=== PATIENT | female | born 1965 | race Caucasian/White ===

== ENCOUNTER 2017-07-29 21:26 | Emergency (ER) | payer SELFPAY ==
[2017-07-29 21:26] VITALS: BMI 30.2
[2017-07-29] MEDS ORDERED: Sodium Chloride 0.9% 1,000 ML IV STA (22:05)
[2017-07-29 22:20] VITALS: O2SAT 98
[2017-07-29 22:21] LABS: BASO % 0.5 % (0.0-2.0); EOS # 0.2 K/uL (0.0-0.7); EOS % 3.6 % (0.0-4.0); HEMATOCRIT 35.8 % (34.0-47.0); LYMPH # 1.5 K/uL (1.0-4.3); LYMPH % 25.9 % (20.0-40.0); MEAN CELL VOLUME 86.9 fL (81.0-99.0); MEAN CORPUSCULAR HEMOGLOBIN 29.5 pg (27.0-31.0); MEAN CORPUSCULAR HGB CONC 33.9 g/dL (33.0-37.0); MONO # 0.5 K/uL (0.0-0.8); RED CELL DISTRIBUTION WIDTH 13.4 % (11.5-14.5); WHITE BLOOD COUNT 5.9 K/uL (4.8-10.8)
[2017-07-29 22:26] LABS: URINE BILIRUBIN NEGATIVE (NEGATIVE); URINE BLOOD NEGATIVE (NEGATIVE); URINE COLOR Colorless (YELLOW); URINE GLUCOSE (UA) NORMAL (Normal); URINE KETONE NEGATIVE (NEGATIVE); URINE LEUKOCYTE ESTERASE NEG Leu/uL (Negative); URINE PROTEIN NEGATIVE (NEGATIVE); URINE UROBILINOGEN NORMAL mg/dL (0.2-1.0); WBC URINE < 1 /hpf (0-5)
[2017-07-29 22:28] LABS: CHLORIDE 104 mmol/L (98-107); SODIUM 138 mmol/L (132-148)
[2017-07-29 22:29] LABS: POTASSIUM 3.7 mmol/L (3.6-5.2)
[2017-07-29 22:31] LABS: ALB/GLOB RATIO 1.4 (1.0-2.1); ALKALINE PHOSPHATASE 83 U/L (38-126); AST/SGOT 22 U/L (14-36); BILIRUBIN,TOTAL 0.5 mg/dL (0.2-1.3); BLOOD UREA NITROGEN 17 mg/dL (7-17); CARBON DIOXIDE 21 mmol/L (22-30); GFR AFRICAN-AMERICAN > 60; TOTAL PROTEIN 7.7 g/dL (6.3-8.3)
[2017-07-29 22:32] LABS: ALT/SGPT 31 U/L (9-52); CALCIUM 8.9 mg/dl (8.6-10.4); GLUCOSE,RANDOM 94 mg/dL (65-105)
--- NOTE | 2017-07-29 23:11 | C.PDOC ---
History Of Present Illness 51 y/o F c no PMHx p/w R sided facial sensation x 1 hour. Patient states she had some chocolate and then began to feel a numbness or heaviness to the R cheek. She believed this to be an allergic reaction so she took Benadryl, but the symptoms did not resolve so she came to the ED. She states she has had this same sensation before associated with anxiety but never this severely. She does note that she is an anxious person. She also notes bilateral hand numbness this morning which self resolved. She denies headache, vision change, facial droop, extremity weakness or numbness, gait imbalance, dizziness, throat swelling, drooling, dyspnea. Time Seen by Provider: 07/29/17 21:48 Chief Complaint (Nursing): Weakness/Neurological Deficit History Per: Patient History/Exam Limitations: no limitations Onset/Duration Of Symptoms: Hrs (1 hour) Current Symptoms Are (Timing): Still Present Possible Causative Factor(s): Other (possible allergen) Severity: Mild Recent travel outside of the [place]: No Additional History Per: Patient Past Medical History Reviewed: Historical Data, Nursing Documentation, Vital Signs Vital Signs: Last Vital Signs Temp 98.1 F 07/29/17 22:47 Pulse 68 07/29/17 22:47 Resp 18 07/29/17 22:47 BP 121/67 07/29/17 22:47 Pulse Ox 98 07/29/17 23:19 - Medical History PMH: Anemia (secondary to uterine fibroids) Denies: Chronic Kidney Disease Family History: States: Diabetes - Social History Hx Tobacco Use: No Hx Alcohol Use: No Hx Substance Use: No - Immunization History Hx Tetanus Toxoid Vaccination: No Hx Influenza Vaccination: No Hx Pneumococcal Vaccination: No Review Of Systems Except As Marked, All Systems Reviewed And Found Negative. (Bilateral hand numbness (self resolved). Facial sensation) Constitutional: Negative for: Fever Cardiovascular: Negative for: Chest Pain Neurological: Positive for: Numbness Physical Exam - Physical Exam Additional Physical Exam Comments: Constitutional: No acute distress. Head: Normocephalic. Atraumatic. Mild R sided maxillary swelling. Eyes: PERRL. ENT: Moist mucous membranes. Neck: Supple. Cardiovascular: Regular rate. Radial pulse 2+ bilaterally. Chest: No tenderness. Respiratory: Clear to auscultation bilaterally. GI: Soft. Nontender. Nondistended. Back: No CVA tenderness. Musculoskeletal: No tenderness or swelling of extremities. Skin: No rash. Neurologic: Alert and Oriented x 3. CN II to XII intact. No facial droop. Motor 5/5 x 4. Sensation to light touch equal in face, arms, legs. FTN, HTS normal. No ED Course And Treatment - Laboratory Results Result Diagrams: 07/29/17 22:15 07/29/17 22:15 O2 Sat by Pulse Oximetry: 98 (RA) Pulse Ox Interpretation: Normal Medical Decision Making Medical Decision Making: Plans: * Blood work up * IV fluids * UA Patient without focal deficit, no evidence of CVA. Small amount of swelling to R cheek, perhaps allergic reaction vs perioral sensation from hyperventilation? Will observe patient in ED for several hours, check labs. Patient states the swelling has improved a little. She continues to have no facial droop, extremity weakness, etc. Labs unremarkable. Will discharge home, advised to seek primary care, instructed to return to the ED for vision change, facial droop, hemiparesis, or any other problem. Disposition - Disposition Referrals: [facility] [Outside] Disposition: HOME/ ROUTINE Disposition Time: 23:30 Condition: STABLE Forms: [employer] (Greenlandic) - Clinical Impression Clinical Impression: Cheek swelling - Scribe Statement The provider has reviewed the documentation as recorded by the Scribivory sharpe All medical record entries made by the Scribe were at my direction and personally dictated by me. I have reviewed the chart and agree that the record accurately reflects my personal performance of the history, physical exam, medical decision making, and the department course for this patient. I have also personally directed, reviewed, and agree with the discharge instructions and disposition.
[2017-07-29 23:25] VITALS: BP 121/67; PULSE 68; RESP 18; TEMP 98.1
== END 2017-07-29 23:36 | disposition home or self-care (01) ==
LOC: C.ER 21:26
DX: R22.0 Localized swelling, mass and lump, head (principal)
CPT/HCPCS: 80053; 81001; 84703; 85025; 96360; 99285; J7040